=== PATIENT | female | born 1950 | race Caucasian/White ===

== ENCOUNTER → 2016-09-27 | Outpatient (CLI) | payer OTHER | LOC: LAB SRH 12:17 | DX: B18.2 Chronic viral hepatitis C (principal) | CPT/HCPCS: 90074; 92710; 93002 ==

== ENCOUNTER → 2016-09-27 | Outpatient (CLI) | payer OTHER | LOC: LAB SRH 12:09 | DX: E03.9 Hypothyroidism, unspecified (principal) | CPT/HCPCS: 90100; 93140 ==